=== PATIENT | male | born 1955 | race Caucasian/White ===

== ENCOUNTER 2016-03-23 00:53 | Inpatient (IN) | payer OTHER ==
[~2016-03-23] VITALS: Ht 170.2 cm; Wt 79.0 kg
[~2016-03-23 00:53] MED LIST: ALPR2TAB3 PO; ASPI81TA11 PO; ATOR40TA PO; ESCI20TA PO; LISI-360 PO; OXYC-360 PO; PLAV75TA PO; RANT150EF PO/NG; TOPR50TA PO
[2016-03-23 02:25] VITALS: BP 156/74; PULSE 109; RESP 18; TEMP 98.2; O2SAT 97
[2016-03-23] MEDS ORDERED: ALUMINUM/MAGNESIUM/SIMETH 30 ML CUP PO PRN (02:45)
[2016-03-23] MEDS ORDERED: LORazepam 2 MG/ML VIAL IM PRN (02:45)
[2016-03-23] MEDS ORDERED: MAGNESIUM HYDROXIDE SUSP 30 ML CUP PO PRN (02:45)
[2016-03-23 06:01] VITALS: BP 154/76; PULSE 85; RESP 17; TEMP 98.2; O2SAT 98
[2016-03-23 08:06] LABS: ANION GAP 9 MEQ/L (5-15); BICARBONATE 25.3 MEQ/L (21.0-32.0); BLOOD UREA NITROGEN 15 MG/DL (7-18); CHLORIDE 104 MEQ/L (98-107); GLOMERULAR FILTRATION RATE 106 ML/MIN (>89); POTASSIUM 4.2 MEQ/L (3.5-5.1); SODIUM (NA) 138 MEQ/L (136-145)
[2016-03-23 08:08] LABS: HDL CHOLESTEROL 31.2 MG/DL (40.0-60.0); LDL CHOLESTEROL 126 MG/DL (0-99)
[2016-03-23] MEDS: METOPROLOL TARTRATE 50 MG TAB PO SCH ×2 (08:42→20:30)
[2016-03-23] MEDS: ASPIRIN 81 MG CHEW TAB PO SCH (08:42)
[2016-03-23] MEDS: FENOFIBRATE 145 MG TAB PO SCH (08:42)
[2016-03-23] MEDS: PARoxetine HCL 20 MG TAB PO SCH (08:42)
[2016-03-23] MEDS: metFORMIN HCL 500 MG TAB PO SCH ×2 (08:42→21:13)
[2016-03-23] MEDS: CLOPIDOGREL 75 MG TAB PO SCH (08:42)
[2016-03-23] MEDS: ACETAMINOPHEN 325 MG TAB PO PRN (08:43)
[2016-03-23] MEDS: ENALAPRIL MALEATE 5 MG TAB PO SCH (08:57)
[2016-03-23] MEDS: GLIMEPIRIDE 2 MG TAB PO SCH ×2 (08:57→20:30)
[2016-03-23 13:43] LABS: HEMOGLOBIN A1a 0.8 %; HEMOGLOBIN A1b 1.9 %; HEMOGLOBIN Ao 83.9 %; HEMOGLOBIN LA1C 2.2 %; HEMOGLOBIN P3 3.6 %
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
[2016-03-23 19:41] VITALS: BP 146/69; PULSE 80; RESP 18; TEMP 97.6
--- NOTE | 2016-03-23 19:52 | PD.CONS ---
HPI Service [facility] Hospitalists Consult Requested By Primary Care Physician Gerardo Justice M.D. Diagnoses: History of Present Illness Pt was [place] Acted and sent to psych unit by his psychiatrist. Apparently he was having suicidal ideation. I was asked if ok to start prazosin for possible ptsd. when I evaluated the patient he was not interested in telling me why he was there.."I don't want to talk about it". Review of Systems Other reported SI Past Family Social History Past Medical History pad. right superficial fem. and ext iliac stents cad. stents lad/rca htn dm anxiety/depression. Reported Medications Lisinopril 10 mg (Lisinopril) 10 Mg Tab 1 Tab PO DAILY Escitalopram Oxalate 20 Mg Tab 20 Mg PO DAILY Plavix (Clopidogrel Bisulfate) 75 Mg Tab 75 Mg PO DAILY Atorvastatin 40 mg (Atorvastatin Calcium) 40 Mg Tab 40 Mg PO HS Aspirin EC 81 mg (Aspirin) 81 Mg Tab 81 Mg PO DAILY Alprazolam 2 Mg Tab 2 Mg PO BID Percocet (Oxycodone/Acetaminophen) 5 Mg/325 Mg Tab 1 Tab PO Q4HPRN FOR PAIN Zantac (Ranitidine HCl) 150 Mg Tab 150 Mg PO/NG BID Toprol Xl (Metoprolol Succinate) 50 Mg Tabcr 50 Mg PO BID amaryl 2mg bid metformin 1000mg bid Allergies: Coded Allergies: No Known Allergies (Verified , 02/15/08) Family History nc Social History denies etoh use to me Physical Exam Vital Signs heent neg heart reg lung cta abd s/nt ext no edema Vital Signs Date Time Temp Pulse Resp B/P Pulse Ox O2 Delivery O2 Flow Rate FiO2 03/23/16 19:41 97.6 80 18 146/69 03/23/16 06:01 98.2 85 17 154/76 98 03/23/16 02:25 98.2 109 18 156/74 97 Laboratory Laboratory Tests Test 03/23/16 06:51 Sodium Level 138 Potassium Level 4.2 Chloride Level 104 Carbon Dioxide Level 25.3 Anion Gap 9 Blood Urea Nitrogen 15 Creatinine 0.75 Estimat Glomerular Filtration 106 Rate Random Glucose 143 Hemoglobin A1c 7.3 Calcium Level 9.1 Triglycerides Level 199 Cholesterol Level 197 LDL Cholesterol 126 HDL Cholesterol 31.2 Cholesterol/HDL Ratio 6.31 Result Diagram: 03/23/16 0651 Assessment and Plan Problem List: (1) Major depressive disorder, recurrent, severe with psychotic features Status: Acute Plan: Per psychiatry It is ok to start prazosin from medical standpt if felt necessary by psychiatrist. will follow bp and adjust meds as needed. (2) HTN (hypertension) Status: Chronic Plan: cont bb and werner ok to start prazosin if psychiatry feels necessary will follow bp (3) DM type 2 (diabetes mellitus, type 2) Status: Chronic Plan: cont amaryl and metformin ssi (4) PAD (peripheral artery disease) Status: Chronic Plan: cont antiplts. (5) CAD (coronary artery disease) Status: Chronic Plan: cont bb/antiplts Ryne Grace MD Mar 23, 2016 19:52
[2016-03-23] MEDS ORDERED: DEXTROSE 50% IN WATER 50 ML VIAL(D50) IV PUSH PRN (20:00)
[2016-03-23] MEDS ORDERED: GLUCAGON 1 MG/ML VIAL OTHER PRN (20:00)
[2016-03-23] MEDS: AMITRIPTYLINE HCL 50 MG TAB PO SCH (20:30)
[2016-03-23] MEDS: hydrOXYzine HCL 50 MG TAB PO PRN (20:30)
[2016-03-23] MEDS: PRAVASTATIN SOD 80 MG TAB PO SCH (20:30)
[2016-03-23] MEDS: INSULIN ASPART SUPPLEMENTAL SCALE SQ SCH (21:00)
[2016-03-24 06:06] VITALS: BP 125/62; PULSE 82; RESP 16; TEMP 98
[2016-03-24] MEDS: INSULIN ASPART SUPPLEMENTAL SCALE SQ SCH ×4 (06:16→21:00)
[2016-03-24] MEDS: FENOFIBRATE 145 MG TAB PO SCH (08:18)
[2016-03-24] MEDS: METOPROLOL TARTRATE 50 MG TAB PO SCH ×2 (08:18→20:21)
[2016-03-24] MEDS: ENALAPRIL MALEATE 5 MG TAB PO SCH (08:18)
[2016-03-24] MEDS: CLOPIDOGREL 75 MG TAB PO SCH (08:18)
[2016-03-24] MEDS: PARoxetine HCL 20 MG TAB PO SCH (08:18)
[2016-03-24] MEDS: GLIMEPIRIDE 2 MG TAB PO SCH ×2 (08:19→21:00)
[2016-03-24] MEDS: ASPIRIN 81 MG CHEW TAB PO SCH (08:19)
[2016-03-24] MEDS: metFORMIN HCL 500 MG TAB PO SCH ×2 (08:19→20:21)
--- NOTE | 2016-03-24 13:45 | HHI.PYPN ---
Subjective Remarks Patient was seen and discussed with the housekeeping staff. Reportedly patient does get confused and misinterprets the reality. But no behavior or management problem reported. Patient claimed that he has been feeling much better with the medication. He has been sleeping better. Denied any side effects on the medication. Denied any suicidal ideation intentions or plan. Denied any active auditory or visual hallucinations. Patient is willing to sign voluntary and stay to monitor the medication and stabilize his symptoms. Continue with the same treatment Review of Systems Psychiatric: COMPLAINS OF: Confusion, Mood changes, Depression Other Review of systems same as that off 03/23/16 Objective Alert: Yes [place]: Person, Place Mood: Anxious, Depressed Affect: Restricted Memory Intact: Recent (mildly impaired) Hallucinations: Other (patient denies any active auditory or visual hallucinations) Delusions: Yes Delusion Type: Other (patient sometimes gets confused and misinterprets reality ) Suicidal: Ideation (patient denied any suicidal ideation intentions or plan) Homicidal: Ideation (denies) Insight/Judgement Limited Vitals/IOs Vital Signs Date Time Temp Pulse Resp B/P Pulse Ox O2 Delivery O2 Flow Rate FiO2 03/24/16 06:06 98.0 82 16 125/62 03/23/16 06:01 98 Assessment & Plan Problem List: (1) Major depressive disorder, recurrent, severe with psychotic features ICD Code: F33.3 (2) Chronic post-traumatic stress disorder (PTSD) ICD Code: F43.12 Assessment & Plan Estimated LOS: days Justification for Cont. Inpt. Risk of decompensation. Titrating and monitoring of the medication Request HC Surrog/Guard Advoc?: No Jonatan Yusuf MD Mar 24, 2016 13:45
[2016-03-24] MEDS: REMOVE OLD NICODERM (NICOTINE) PATCH TD SCH (16:24)
[2016-03-24] MEDS: NICOTINE 21 MG/24 HR PATCH TD SCH (16:24)
[2016-03-24 18:14] VITALS: BP 122/64; PULSE 92; RESP 18; TEMP 98.1
[2016-03-24] MEDS: AMITRIPTYLINE HCL 50 MG TAB PO SCH (20:21)
[2016-03-24] MEDS: PRAVASTATIN SOD 80 MG TAB PO SCH (20:21)
[2016-03-24 20:56] VITALS: BP 138/64; PULSE 84; RESP 18; TEMP 98.5; O2SAT 97
[2016-03-24] MEDS: QUEtiapine FUMARATE 100 MG TAB PO SCH (21:00)
[2016-03-24] MEDS: hydrOXYzine HCL 50 MG TAB PO PRN (21:24)
[2016-03-24] MEDS ORDERED: OLANZapine IM 10 MG VIAL IM ONE (23:00)
[2016-03-25] MEDS: LORazepam 1 MG TAB PO PRN ×2 (01:19→10:00)
[2016-03-25] MEDS: hydrOXYzine HCL 50 MG TAB PO PRN ×2 (03:24→21:34)
[2016-03-25 06:00] VITALS: BP 138/63; PULSE 79; RESP 18; TEMP 97.5; O2SAT 99
[2016-03-25] MEDS: INSULIN ASPART SUPPLEMENTAL SCALE SQ SCH ×4 (06:16→21:00)
[2016-03-25] MEDS: NICOTINE 21 MG/24 HR PATCH TD SCH (09:00)
[2016-03-25] MEDS: FENOFIBRATE 145 MG TAB PO SCH (09:00)
[2016-03-25] MEDS: REMOVE OLD NICODERM (NICOTINE) PATCH TD SCH (09:00)
[2016-03-25] MEDS: ASPIRIN 81 MG CHEW TAB PO SCH (09:05)
[2016-03-25] MEDS: ENALAPRIL MALEATE 5 MG TAB PO SCH (09:05)
[2016-03-25] MEDS: METOPROLOL TARTRATE 50 MG TAB PO SCH ×2 (09:05→21:00)
[2016-03-25] MEDS: metFORMIN HCL 500 MG TAB PO SCH ×2 (09:05→21:00)
[2016-03-25] MEDS: CLOPIDOGREL 75 MG TAB PO SCH (09:05)
[2016-03-25] MEDS: PARoxetine HCL 20 MG TAB PO SCH (09:05)
[2016-03-25] MEDS: GLIMEPIRIDE 2 MG TAB PO SCH ×2 (09:05→21:00)
[2016-03-25] MEDS ORDERED: diphenhydrAMINE HCL 50 MG/ML VIAL IM STA (12:01)
[2016-03-25] MEDS ORDERED: LORazepam 2 MG/ML VIAL IM STA (12:01)
[2016-03-25] MEDS ORDERED: HALOPERIDOL LACTATE 5 MG/ML AMP IM STA (12:01)
--- NOTE | 2016-03-25 14:43 | HHI.PYPN ---
Subjective Remarks Patient seen in day room with nurse Newman, also being observed by floor staff, patient sitting at table rubbing touching moving hands over the table was if reaching for something that is not there. Patient showing very poor eye contact. Patient selectively mute only making mumbling sounds not responding to any questions. This is a significant change in his mental status since yesterday when upon admission he was verbal and able to communicate history to Dr. Eden and the floor staff. Also interesting patient was on her fairly large dose of opiates and benzodiazepines prior to admission. We will offer schedule Ativan 1 mg 3 times a day. We will order a neurology consult also. And if possible get a urine toxicology also at this time we'll place the patient on a one-to-one observation level for his own safety Review of Systems Other And able to ascertain due to patient's change in mental status Objective Alert: Yes [place]: Situation (labile to ascertain due to patient's altered mental status) Mood: Agitated, Anxious, Depressed Affect: Restricted Memory Intact: Recent (mildly impaired) Hallucinations: Other (unable to ascertain due to patient's altered mental status) Delusions: Yes Delusion Type: Other (patient sometimes gets confused and misinterprets reality ) Suicidal: Ideation (difficult to ascertain due to patient's altered mental status) Homicidal: Ideation (difficult to ascertain due to patient's altered mental status) Insight/Judgement Nil Vitals/IOs Vital Signs Date Time Temp Pulse Resp B/P Pulse Ox O2 Delivery O2 Flow Rate FiO2 03/25/16 06:00 97.5 79 18 138/63 99 Assessment & Plan Problem List: (1) Major depressive disorder, recurrent, severe with psychotic features ICD Code: F33.3 (2) Chronic post-traumatic stress disorder (PTSD) ICD Code: F43.12 (3) Altered mental status, unspecified ICD Code: R41.82 Assessment & Plan Estimated LOS: days issue with significant alteration of his mental status appears to be showing a significant demented type behaviors and/or grossly psychotic. Will reinstate scheduled benzodiazepines have a neurology consult Place the patient on one-to-one Justification for Cont. Inpt. With the same patient was severely decompensated placed a lower level of care, nasal assessment for this fairly recent change in his mental status Discharge Planning To be determined Request HC Surrog/Guard Advoc?: No Chavez Ty MD Mar 25, 2016 14:43
[2016-03-25] MEDS: LORazepam 2 MG/ML VIAL IM SCH (17:25)
[2016-03-25 19:51] VITALS: BP 126/59; PULSE 81; RESP 18; TEMP 97.6; O2SAT 97
[2016-03-25] MEDS: AMITRIPTYLINE HCL 50 MG TAB PO SCH (21:00)
[2016-03-25] MEDS: QUEtiapine FUMARATE 100 MG TAB PO SCH (21:00)
[2016-03-25] MEDS: PRAVASTATIN SOD 80 MG TAB PO SCH (21:00)
[2016-03-26] MEDS: hydrOXYzine HCL 50 MG TAB PO PRN (03:45)
[2016-03-26 06:06] VITALS: BP 158/73; PULSE 83; RESP 17; TEMP 98; O2SAT 99
[2016-03-26] MEDS: INSULIN ASPART SUPPLEMENTAL SCALE SQ SCH ×4 (06:15→20:48)
[2016-03-26] MEDS: REMOVE OLD NICODERM (NICOTINE) PATCH TD SCH (09:00)
--- NOTE | 2016-03-26 09:17 | HHI.PYPN ---
Subjective Remarks Patient seen and examined with nursing staff. Please note that this document also services my second opinion for involuntary psychiatric hospitalization under the Aquino act. Chart reviewed. Case discussed with nursing staff who reports patient remains on a one-to-one due to behaviors. On my examination today, the patient tells me get me out of here." He says he came into the hospital because "I kept passing out." He denies any suicidal ideation and says that his previous reports of suicidal thoughts "were just a bunch of BS." He denies side effects from medications. No other issues noted. Review of Systems Other No physical complaints today. No reported withdrawal symptoms. Objective Alert: Yes [place]: Person, Place ([place]), Date (March 25) Mood: Calm Affect: Blunted Memory Intact: Comment (not formally assessed) Hallucinations: Other (no AVH) Delusions: Yes Delusion Type: Other (continues to believe that he has family on the other psychiatric unit) Suicidal: Ideation (no SI voiced but patient is unreliable to contract for safety) Homicidal: Ideation (no HI voiced but see above) Insight/Judgement Poor Remarks No abnormal motor movements noted. In particular no hand tremor, no tongue fasciculations, no mydriasis, no diaphoresis, no other signs of GABAergic withdrawal. Thought process somewhat disorganized. Speech a little bit rambling. Labs Labs reviewed. No new labs. Vitals/IOs Vital Signs Date Time Temp Pulse Resp B/P Pulse Ox O2 Delivery O2 Flow Rate FiO2 03/26/16 06:06 98.0 83 17 158/73 99 Intake and Output 03/25/16 03/25/16 03/26/16 08:00 16:00 00:00 Intake Total 240 ml 720 ml 720 ml Balance 240 ml 720 ml 720 ml Assessment & Plan Problem List: (1) Major depressive disorder, recurrent, severe with psychotic features ICD Code: F33.3 (2) Chronic post-traumatic stress disorder (PTSD) ICD Code: F43.12 (3) Altered mental status, unspecified ICD Code: R41.82 Assessment & Plan Given the circumstances of patient's initial presentation here in his presentation on my examination today, I concur with Dr. Ty that the patient meets criteria for involuntary psychiatric hospitalization under the Aquino act. I completed the second opinion paperwork. Continue one-to-one. Continue current psychotropics as ordered. Might consider holding anticholinergic, antihistaminergic and other deliriogenic medications if this appears to be more of a delirium picture. Awaiting neurological consultation. Continue other medications and care as ordered. Justification for Cont. Inpt. Risk for decompensation. Concern for impairments in safety. Discharge Planning Per Dr. Ty Request HC Surrog/Guard Advoc?: Yes Selvin June MD Mar 26, 2016 09:17
[2016-03-26] MEDS: METOPROLOL TARTRATE 50 MG TAB PO SCH ×2 (09:22→20:48)
[2016-03-26] MEDS: GLIMEPIRIDE 2 MG TAB PO SCH ×2 (09:22→20:47)
[2016-03-26] MEDS: ENALAPRIL MALEATE 5 MG TAB PO SCH (09:22)
[2016-03-26] MEDS: FENOFIBRATE 145 MG TAB PO SCH (09:22)
[2016-03-26] MEDS: ASPIRIN 81 MG CHEW TAB PO SCH (09:22)
[2016-03-26] MEDS: metFORMIN HCL 500 MG TAB PO SCH ×2 (09:23→20:47)
[2016-03-26] MEDS: PARoxetine HCL 20 MG TAB PO SCH (09:23)
[2016-03-26] MEDS: CLOPIDOGREL 75 MG TAB PO SCH (09:23)
[2016-03-26] MEDS: LORazepam 2 MG/ML VIAL IM SCH ×3 (09:23→17:28)
[2016-03-26] MEDS: NICOTINE 21 MG/24 HR PATCH TD SCH (09:24)
[2016-03-26 19:24] VITALS: BP 159/68; PULSE 88; RESP 18; TEMP 98.7; O2SAT 98
[2016-03-26] MEDS: PRAVASTATIN SOD 80 MG TAB PO SCH (20:48)
[2016-03-26] MEDS: QUEtiapine FUMARATE 100 MG TAB PO SCH (20:48)
[2016-03-26] MEDS: AMITRIPTYLINE HCL 50 MG TAB PO SCH (20:48)
--- NOTE | 2016-03-26 21:16 | MB ---
cc: ELIJAH WATSON MD DATE OF CONSULTATION 03/26/16 REASON FOR CONSULTATION Altered mental status and neurological assessment for behavioral psychological abnormality. HISTORY OF PRESENT ILLNESS A 61-year-old male who was Aquino Acted by his personal psychiatrist because he reported suicidal ideation. He was admitted to the psychiatry unit. The patient is being treated for depression by his private psychiatrist. Now recently he is having problems with seeing shadows and occasional confusion. The patient denies passing out, headache, blurred vision, double vision, slurred speech. He is on high doses of Percocet 5 pills over the 24 hours as he admits. He is currently on aspirin and Plavix because he has had two stents done in his lower extremities and he has history of remote stroke without residual defects. REVIEW OF SYSTEMS A 12-point review of systems is negative except what is stated in the HPI. PAST MEDICAL HISTORY 1. Stroke with residual defect and he is not certain which side of the brain it was and to what type it was 2. Bilateral stenting of the lower extremities, 3. Anxiety 4. Depression 5. Coronary artery disease 6. Thyroid disorder. FAMILY HISTORY Noncontributory ALLERGIES No known allergies. SOCIAL HISTORY Denies drugs and alcohol abuse PAST SURGICAL HISTORY Bilateral stents GENERAL EXAM: Awake, alert, not in acute distress, good historian CARDIOVASCULAR: Normal sinus rhythm, no murmur RESPIRATORY: clear to auscultation, no wheezes MUSCULOSKELETAL: no edema, no cyanosis, moves all extremities equally DIAGNOSTIC IMPRESSION 1. History of stroke 2. Recent episodes of confusion/possible TIA. PLAN 1. Neuro checks q. four hourly. 2. MRI of brain without contrast. 3. Continue aspirin 81 mg 4. Continue Plavix 75 mg 5. DVT prophylaxis. Thank you for the opportunity to participate in the care of the patient. MD DOUGLAS Kincaid/ /8:05 PM /9:08 PM MARI
[2016-03-27 05:36] VITALS: BP 156/78; PULSE 82; RESP 16; TEMP 97.6; O2SAT 93
[2016-03-27] MEDS: metFORMIN HCL 500 MG TAB PO SCH ×2 (08:53→21:00)
[2016-03-27] MEDS: ENALAPRIL MALEATE 5 MG TAB PO SCH (08:53)
[2016-03-27] MEDS: PARoxetine HCL 20 MG TAB PO SCH (08:53)
[2016-03-27] MEDS: GLIMEPIRIDE 2 MG TAB PO SCH ×2 (08:53→22:11)
[2016-03-27] MEDS: ASPIRIN 81 MG CHEW TAB PO SCH (08:53)
[2016-03-27] MEDS: FENOFIBRATE 145 MG TAB PO SCH (08:53)
[2016-03-27] MEDS: CLOPIDOGREL 75 MG TAB PO SCH (08:54)
[2016-03-27] MEDS: METOPROLOL TARTRATE 50 MG TAB PO SCH ×2 (08:54→21:00)
[2016-03-27] MEDS: LORazepam 2 MG/ML VIAL IM SCH (08:55)
[2016-03-27] MEDS: NICOTINE 21 MG/24 HR PATCH TD SCH (08:58)
[2016-03-27] MEDS: REMOVE OLD NICODERM (NICOTINE) PATCH TD SCH (08:58)
[2016-03-27] MEDS: INSULIN ASPART SUPPLEMENTAL SCALE SQ SCH ×3 (10:52→21:00)
--- NOTE | 2016-03-27 12:27 | HHI.PYPN ---
Subjective Remarks Patient seen and examined with nursing staff. Chart reviewed. Case discussed with nursing staff no behaviors to report. On my examination today, the patient believes that he came into the hospital because "I started freaking out and moving my hands." He denies any SI or HI. Denies any side effects from medications. Review of Systems Other No reported physical complaints today Objective Alert: Yes [place]: Person (O x 3) Mood: Calm Affect: Blunted Memory Intact: Comment (Not assessed) Hallucinations: Other (No AVH) Delusions: No Delusion Type: Other (no delusions today) Suicidal: Ideation (no SI voiced) Homicidal: Ideation (no HI voiced) Insight/Judgement Perhaps improving Remarks Thought process seems fairly linear today. Speech within normal limits. No abnormal motor movements noted. No signs of withdrawal noted. Labs Labs reviewed. No new labs. Vitals/IOs Vital Signs Date Time Temp Pulse Resp B/P Pulse Ox O2 Delivery O2 Flow Rate FiO2 03/27/16 05:36 97.6 82 16 156/78 93 Intake and Output 03/26/16 03/26/16 03/27/16 08:00 16:00 00:00 Intake Total 480 ml 1200 ml 720 ml Balance 480 ml 1200 ml 720 ml Assessment & Plan Problem List: (1) Major depressive disorder, recurrent, severe with psychotic features ICD Code: F33.3 (2) Chronic post-traumatic stress disorder (PTSD) ICD Code: F43.12 (3) Altered mental status, unspecified ICD Code: R41.82 Assessment & Plan Mental status seems improved today. No further episodes of behavioral disturbance. I'll continue though one-to-one for another 24 hours but could probably be discontinued tomorrow if behavior remains good. I'll go ahead and switch his IM Ativan to oral, which will have the effect of a small dose decrease. Continue other medications and care as ordered. Neurology consultation noted and appreciated. MRI of the brain has been scheduled for tomorrow. Justification for Cont. Inpt. Concerns for impairments in reality testing. Risk for decompensation. Discharge Planning Per Dr. Ty. Request HC Surrog/Guard Advoc?: Yes Selvin June MD Mar 27, 2016 12:27
[2016-03-27] MEDS: LORazepam 1 MG TAB PO SCH ×2 (12:37→17:03)
[2016-03-27 18:00] VITALS: BP 102/51; PULSE 82; RESP 16; TEMP 97.7; O2SAT 98
[2016-03-27] MEDS: ACETAMINOPHEN 325 MG TAB PO PRN (18:32)
[2016-03-27] MEDS: AMITRIPTYLINE HCL 50 MG TAB PO SCH (22:11)
[2016-03-27] MEDS: hydrOXYzine HCL 50 MG TAB PO PRN (22:11)
[2016-03-27] MEDS: QUEtiapine FUMARATE 100 MG TAB PO SCH (22:11)
[2016-03-27] MEDS: PRAVASTATIN SOD 80 MG TAB PO SCH (22:11)
[2016-03-28 06:00] VITALS: BP 118/60; PULSE 100; RESP 18; TEMP 98.3; O2SAT 97
[2016-03-28] MEDS: INSULIN ASPART SUPPLEMENTAL SCALE SQ SCH ×4 (06:37→20:10)
[2016-03-28] MEDS: REMOVE OLD NICODERM (NICOTINE) PATCH TD SCH (09:00)
[2016-03-28] MEDS: FENOFIBRATE 145 MG TAB PO SCH (09:00)
[2016-03-28] MEDS: CLOPIDOGREL 75 MG TAB PO SCH (09:09)
[2016-03-28] MEDS: PARoxetine HCL 20 MG TAB PO SCH (09:09)
[2016-03-28] MEDS: LORazepam 1 MG TAB PO SCH ×3 (09:09→17:27)
[2016-03-28] MEDS: ENALAPRIL MALEATE 5 MG TAB PO SCH (09:09)
[2016-03-28] MEDS: NICOTINE 21 MG/24 HR PATCH TD SCH (09:09)
[2016-03-28] MEDS: ASPIRIN 81 MG CHEW TAB PO SCH (09:09)
[2016-03-28] MEDS: GLIMEPIRIDE 2 MG TAB PO SCH ×2 (09:09→20:26)
[2016-03-28] MEDS: METOPROLOL TARTRATE 50 MG TAB PO SCH ×2 (09:10→20:26)
[2016-03-28] MEDS: metFORMIN HCL 500 MG TAB PO SCH ×2 (09:10→20:26)
--- NOTE | 2016-03-28 12:45 | HHI.PYPN ---
Subjective Remarks Patient seen in his room with nurse Ryan, patient calm cooperative and oriented. States he does not remember my visit with him on 03/25. At that time he is quite psychotic. However knowledge patient is calm cooperative and pleasant with me does complain of some pain. We will cancel his Tylenol and offer him Motrin 800 mg every 8 hours. He does denies suicidality homicidality voices or visions at the present time. For now continue other medication no change Review of Systems Except as stated in HPI: all other systems reviewed are Neg Objective Alert: Yes [place]: Person (O x 3) Mood: Calm Affect: Blunted Memory Intact: Comment (Not assessed) Hallucinations: Other (No AVH) Delusions: No Delusion Type: Other (no delusions today) Suicidal: Ideation (no SI voiced) Homicidal: Ideation (no HI voiced) Insight/Judgement Poor Vitals/IOs Vital Signs Date Time Temp Pulse Resp B/P Pulse Ox O2 Delivery O2 Flow Rate FiO2 03/28/16 06:00 98.3 100 18 118/60 97 Intake and Output 03/27/16 03/27/16 03/28/16 08:00 16:00 00:00 Intake Total 720 ml 960 ml 660 ml Balance 720 ml 960 ml 660 ml Assessment & Plan Problem List: (1) Major depressive disorder, recurrent, severe with psychotic features ICD Code: F33.3 (2) Chronic post-traumatic stress disorder (PTSD) ICD Code: F43.12 (3) Altered mental status, unspecified ICD Code: R41.82 Assessment & Plan Patient showing marked decrease in his psychotic symptoms, more appropriate unfocused. For now continue treatment see med changes above Justification for Cont. Inpt. At this time patient would decompensated placed in the lower level of care Discharge Planning To be determined Request HC Surrog/Guard Advoc?: Yes Chavez Ty MD Mar 28, 2016 12:45
[2016-03-28] MEDS: IBUPROFEN 800 MG TAB PO SCH ×2 (13:05→20:29)
--- NOTE | 2016-03-28 15:17 | HHI.PR ---
Subjective Remarks medical team signed off case yesterday. Reconsulted by psychiatry d/t pt c/o back pain. Pt interviewed. Per pt, he suffers from chronic neck and back pain. Pt denies any recent exacerbation. Pt denies any recent injuries. Pt denies any weakness in his arms or legs. Pt denies any loss of bowel or bladder control. Pt denies any difficulties with ambulation. Objective Vitals Vital Signs Date Time Temp Pulse Resp B/P Pulse Ox O2 Delivery O2 Flow Rate FiO2 03/28/16 06:00 98.3 100 18 118/60 97 03/27/16 19:32 18 03/27/16 18:00 97.7 82 16 102/51 98 03/27/16 03/27/16 03/28/16 15:00 23:00 07:00 Intake Total 1560 ml 660 ml Balance 1560 ml 660 ml Intake Oral 1560 ml 660 ml # Voids 1 Objective Remarks GENERAL: This is a well-nourished, well-developed patient, in no apparent distress. CARDIOVASCULAR: Regular rate and rhythm without murmurs, gallops, or rubs. RESPIRATORY: Clear to auscultation. Breath sounds equal bilaterally. No wheezes , rales, or rhonchi. GASTROINTESTINAL: Abdomen soft, non-tender, nondistended. Normal active bowel sounds MUSCULOSKELETAL: Extremities without clubbing, cyanosis, or edema. NEURO: Alert & Oriented x4 to person, place, time, situation. Moves all ext x4 A/P Problem List: (1) Low back pain at multiple sites Status: Acute Plan: - obtain L-spine x-rays - obtain Thoracic spine x-rays - agree with trial of ibuprofen - pt declines PT (2) Neck pain, chronic Status: Acute Plan: - obtain cervical spine series - agree with trial of ibuprofen - pt declines PT (3) Major depressive disorder, recurrent, severe with psychotic features Status: Acute Plan: - mgmt per Psychiatry (4) HTN (hypertension) Status: Chronic Plan: - observe - continue lopressor & vasotec (5) DM type 2 (diabetes mellitus, type 2) Status: Chronic Plan: - pt essentially normoglycemic since admission - stop routine accue checks - cont amaryl and metformin (6) PAD (peripheral artery disease) Status: Chronic Plan: - ASA, plavix (7) CAD (coronary artery disease) Status: Chronic Plan: - continue metoprolol, ASA, plavix Problem Qualifiers (1) DM type 2 (diabetes mellitus, type 2): Qualified Code: E11.8 - Type 2 diabetes mellitus with complication, without long-term current use of insulin Patric Cisse DO Mar 28, 2016 15:17
--- NOTE | 2016-03-28 18:29 | RADRPT ---
EXAM DATE/TIME: 03/28/2016 17:25 [facility] COMPARISON: No previous studies available for comparison. INDICATIONS : Encephalopathy MEDICAL HISTORY : Hypertension. SURGICAL HISTORY : Myocardial perfusion ENCOUNTER: Subsequent ACUITY: 4-6 days PAIN SCORE: 2/10 LOCATION: Bilateral cranial Patient was premedicated per protocol for underlying contrast media allergy. TECHNIQUE: Multiplanar, multisequence MRI of the brain was performed without contrast. FINDINGS: CEREBRUM: The ventricles are normal for age. No evidence of midline shift, mass lesion, hemorrhage or acute in farction. No extraaxial fluid collections are seen. The pituitary gland and suprasellar cistern are normal in configuration. 7 mm cystic space with a thin rim of gliosis seen adjacent to the left late ral ventricle. WHITE MATTER: No significant signal abnormalities are seen in the white matter. POSTERIOR FOSSA: The cerebellum and brainstem are intact. The 4th ventricle is midline. The cerebellopontine angle is unremarkable. The cerebellar tonsils are normal in position. DIFFUSION IMAGING: No focal areas of restricted diffusion are seen. No evidence of acute infarction. EXTRACRANIAL: The visualized portions of the orbits and paranasal sinuses are unremarkable. CONCLUSION: 1. No acute intracranial abnormality demonstrated. 2. 7 mm cystic space adjacent to the left lateral ventricle, appears chronic and may be a small diver ticulum. This is of doubtful acute clinical significance. Chavez Kimbrough MD on March 28, 2016 at 18:25 Board Certified Radiologist. This report was verified electronically.
[2016-03-28 19:37] VITALS: BP 102/55; PULSE 84; RESP 18; TEMP 97.7
[2016-03-28] MEDS: PRAVASTATIN SOD 80 MG TAB PO SCH (20:26)
[2016-03-28] MEDS: AMITRIPTYLINE HCL 50 MG TAB PO SCH (20:26)
[2016-03-28] MEDS: QUEtiapine FUMARATE 100 MG TAB PO SCH (20:26)
[2016-03-28] MEDS: hydrOXYzine HCL 50 MG TAB PO PRN (20:28)
[2016-03-29 05:36] VITALS: BP 156/70; PULSE 100; RESP 16; TEMP 98.3; O2SAT 98
[2016-03-29] MEDS: IBUPROFEN 800 MG TAB PO SCH ×3 (05:47→21:27)
[2016-03-29] MEDS: INSULIN ASPART SUPPLEMENTAL SCALE SQ SCH ×4 (06:08→20:25)
[2016-03-29 07:33] LABS: BASOPHIL % 0.4 % (0.0-2.0); EOSINOPHIL # 0.1 TH/MM3 (0-0.4); EOSINOPHIL % 1.3 % (0.0-4.0); HEMATOCRIT 40.6 % (39.0-51.0); HEMO FLAGS DIFF FINAL; LYMPH % 13.4 % (9.0-44.0); LYMPHOCYTE # 1.2 TH/MM3 (1.0-4.8); MEAN CELL VOLUME 90.8 FL (80.0-100.0); MEAN CORPUSCULAR HEMOGLOBIN 31.8 PG (27.0-34.0); MONO % 7.5 % (0.0-8.0); NEUT % 77.4 % (16.0-70.0); PLATELET COUNT 258 TH/MM3 (150-450); RED BLOOD COUNT 4.47 MIL/MM3 (4.50-5.90); RED CELL DISTRIBUTION WIDTH 12.4 % (11.6-17.2)
[2016-03-29 08:01] LABS: BICARBONATE 26.9 MEQ/L (21.0-32.0); MAGNESIUM 1.9 MG/DL (1.5-2.5); POTASSIUM 4.1 MEQ/L (3.5-5.1)
[2016-03-29] MEDS: REMOVE OLD NICODERM (NICOTINE) PATCH TD SCH (09:00)
[2016-03-29] MEDS: NICOTINE 21 MG/24 HR PATCH TD SCH (09:40)
[2016-03-29] MEDS: metFORMIN HCL 500 MG TAB PO SCH ×2 (09:41→20:31)
[2016-03-29] MEDS: CLOPIDOGREL 75 MG TAB PO SCH (09:42)
[2016-03-29] MEDS: PARoxetine HCL 20 MG TAB PO SCH (09:42)
[2016-03-29] MEDS: GLIMEPIRIDE 2 MG TAB PO SCH ×2 (09:42→20:32)
[2016-03-29] MEDS: ENALAPRIL MALEATE 5 MG TAB PO SCH (09:42)
[2016-03-29] MEDS: METOPROLOL TARTRATE 50 MG TAB PO SCH ×2 (09:42→20:31)
[2016-03-29] MEDS: ASPIRIN 81 MG CHEW TAB PO SCH (09:42)
[2016-03-29] MEDS: LORazepam 1 MG TAB PO SCH ×3 (09:42→17:19)
[2016-03-29] MEDS: FENOFIBRATE 145 MG TAB PO SCH (09:42)
--- NOTE | 2016-03-29 12:05 | HHI.PYPN ---
Subjective Remarks Patient seen in day room with nurse Cari, chart reviewed, patient returned from x-rays coping well. Still complains of some pain, though denies suicidality today, compliant medications Review of Systems Except as stated in HPI: all other systems reviewed are Neg Objective Alert: Yes [place]: Person (O x 3) Mood: Calm Affect: Blunted Memory Intact: Comment (Not assessed) Hallucinations: Other (No AVH) Delusions: No Delusion Type: Other (no delusions today) Suicidal: Ideation (no SI voiced) Homicidal: Ideation (no HI voiced) Insight/Judgement Poor Labs Test 03/29/16 03/29/16 06:50 06:52 Sodium Level 138 MEQ/L Potassium Level 4.1 MEQ/L Chloride Level 103 MEQ/L Carbon Dioxide Level 26.9 MEQ/L Anion Gap 8 MEQ/L Blood Urea Nitrogen 18 MG/DL Creatinine 0.74 MG/DL Estimat Glomerular Filtration 108 ML/MIN Rate Random Glucose 128 MG/DL Calcium Level 8.7 MG/DL Magnesium Level 1.9 MG/DL White Blood Count 9.0 TH/MM3 Red Blood Count 4.47 MIL/MM3 Hemoglobin 14.2 GM/DL Hematocrit 40.6 % Mean Corpuscular Volume 90.8 FL Mean Corpuscular Hemoglobin 31.8 PG Mean Corpuscular Hemoglobin 35.0 % Concent Red Cell Distribution Width 12.4 % Platelet Count 258 TH/MM3 Mean Platelet Volume 9.6 FL Neutrophils (%) (Auto) 77.4 % Lymphocytes (%) (Auto) 13.4 % Monocytes (%) (Auto) 7.5 % Eosinophils (%) (Auto) 1.3 % Basophils (%) (Auto) 0.4 % Neutrophils # (Auto) 7.0 TH/MM3 Lymphocytes # (Auto) 1.2 TH/MM3 Monocytes # (Auto) 0.7 TH/MM3 Eosinophils # (Auto) 0.1 TH/MM3 Basophils # (Auto) 0.0 TH/MM3 CBC Comment DIFF FINAL Differential Comment Vitals/IOs Vital Signs Date Time Temp Pulse Resp B/P Pulse Ox O2 Delivery O2 Flow Rate FiO2 03/29/16 05:36 98.3 100 16 156/70 98 Intake and Output 03/28/16 03/28/16 03/28/16 07:59 15:59 23:59 Intake Total 360 ml Balance 360 ml Assessment & Plan Problem List: (1) Major depressive disorder, recurrent, severe with psychotic features ICD Code: F33.3 (2) Chronic post-traumatic stress disorder (PTSD) ICD Code: F43.12 (3) Altered mental status, unspecified ICD Code: R41.82 Assessment & Plan Estimated LOS: days patient continues somewhat sad, there is some medical complaints, compliant medications. Justification for Cont. Inpt. At this and the patient will decompensate if placed in a lower level of care Discharge Planning To be determined Request HC Surrog/Guard Advoc?: Yes Chavez Ty MD Mar 29, 2016 12:05
--- NOTE | 2016-03-29 12:14 | RADRPT ---
EXAM DATE/TIME: 03/29/2016 11:32 [facility] COMPARISON: No previous studies available for comparison. INDICATIONS : Pain from fall 1 year ago. MEDICAL HISTORY : Hypertension. SURGICAL HISTORY : None. ENCOUNTER: Initial ACUITY: 1 year PAIN SCORE: 3/10 LOCATION: C-spine FINDINGS: Five view examination was performed. There is reversed lordosis on the lateral view. There is focal primary degenerative changes at C5-6 and C6-7. There is mild anterior subluxation of C4 over C5 by ap proximately 2 mm. Soft tissues are grossly intact. The bony structures are grossly intact. The odonto id process is intact. The neural foramina appear patent bilaterally.. CONCLUSION: 1. Focal primary bony degenerative changes at C5-6 and C6-7. 2. Mild anterior subluxation of C4 over C5 by 2 mm. Nasim Lakhani MD on March 29, 2016 at 12:11 Board Certified Radiologist. This report was verified electronically.
--- NOTE | 2016-03-29 12:16 | RADRPT ---
EXAM DATE/TIME: 03/29/2016 11:34 [facility] COMPARISON: No previous studies available for comparison. INDICATIONS : Pain in upper back. Patient fell 1 year ago. MEDICAL HISTORY : Hypertension. SURGICAL HISTORY : None. ENCOUNTER: Initial ACUITY: 1 year PAIN SCORE: 5/10 LOCATION: T-spine FINDINGS: There is normal alignment of the thoracic vertebral bodies. Vertebral body height is maintained. No evidence of fracture or subluxation. Pedicles are intact at all levels. The paravertebral reflecti ons are not thickened. There is mild curvature of the thoracic spine to the right. No paraspinal soft tissue swelling is seen. CONCLUSION: Mild scoliosis with curvature of the thoracic spine to the right. Otherwise, unremarkable study for p atient's age. Nasim Lakhani MD on March 29, 2016 at 12:13 Board Certified Radiologist. This report was verified electronically.
--- NOTE | 2016-03-29 12:56 | RADRPT ---
EXAM DATE/TIME: 03/29/2016 11:35 [facility] COMPARISON: No previous studies available for comparison. INDICATIONS : Lower back pain MEDICAL HISTORY : Hypertension. SURGICAL HISTORY : None. ENCOUNTER: Initial ACUITY: 1 year PAIN SCORE: 6/10 LOCATION: Lower back FINDINGS: There are five non-rib bearing vertebral bodies. The vertebral bodies are in normal alignment withou t evidence of subluxation or scoliosis. There is mild disc space narrowing at L5-S1. The posterior el ements are intact without evidence of spondylolysis. There are mild primary degenerative changes of t he lumbar spine. The pedicles are intact. Bony mineralization is normal. No fracture is identified. There are atherosclerotic changes in the aorta. CONCLUSION: 1. Mild primary bony degenerative changes of the lumbar spine with mild disc space narrowing at L5-S1 . Nasim Lakhani MD on March 29, 2016 at 12:54 Board Certified Radiologist. This report was verified electronically.
[2016-03-29 18:48] VITALS: BP 160/70; PULSE 82; RESP 18; TEMP 98.1; O2SAT 98
[2016-03-29] MEDS: PRAVASTATIN SOD 80 MG TAB PO SCH (20:31)
[2016-03-29] MEDS: AMITRIPTYLINE HCL 50 MG TAB PO SCH (20:32)
[2016-03-29] MEDS: QUEtiapine FUMARATE 100 MG TAB PO SCH (20:32)
[2016-03-30 05:22] VITALS: BP 144/65; PULSE 76; RESP 16; TEMP 98.1; O2SAT 98
[2016-03-30] MEDS: IBUPROFEN 800 MG TAB PO SCH ×3 (05:55→20:50)
[2016-03-30] MEDS: REMOVE OLD NICODERM (NICOTINE) PATCH TD SCH (09:00)
[2016-03-30] MEDS: FENOFIBRATE 145 MG TAB PO SCH (09:00)
[2016-03-30] MEDS: NICOTINE 21 MG/24 HR PATCH TD SCH (09:18)
[2016-03-30] MEDS: ASPIRIN 81 MG CHEW TAB PO SCH (09:19)
[2016-03-30] MEDS: metFORMIN HCL 500 MG TAB PO SCH ×2 (09:19→20:51)
[2016-03-30] MEDS: ENALAPRIL MALEATE 5 MG TAB PO SCH (09:20)
[2016-03-30] MEDS: LORazepam 1 MG TAB PO SCH ×3 (09:20→17:51)
[2016-03-30] MEDS: CLOPIDOGREL 75 MG TAB PO SCH (09:21)
[2016-03-30] MEDS: GLIMEPIRIDE 2 MG TAB PO SCH ×2 (09:21→20:51)
[2016-03-30] MEDS: METOPROLOL TARTRATE 50 MG TAB PO SCH ×2 (09:21→20:50)
[2016-03-30] MEDS: PARoxetine HCL 20 MG TAB PO SCH (09:21)
--- NOTE | 2016-03-30 10:09 | HHI.PYPN ---
Subjective Remarks Patient seen in the from with nurse Cari, patient calm pleasant with me now denies suicidality homicidality voices or visions he is oriented in all 4 spheres. He states his son is in his home and will be there when he is discharged. Patient compliant medications. At the present time I feel patient does have capacity to sign voluntarily for this hospitalization. Thus I'll lift the [place] act allow him to sign voluntary Review of Systems Except as stated in HPI: all other systems reviewed are Neg Objective Alert: Yes [place]: Person (O x 3) Mood: Calm Affect: Blunted Memory Intact: Comment (Not assessed) Hallucinations: Other (No AVH) Delusions: No Delusion Type: Other (no delusions today) Suicidal: Ideation (no SI voiced) Homicidal: Ideation (no HI voiced) Insight/Judgement Poor Vitals/IOs Vital Signs Date Time Temp Pulse Resp B/P Pulse Ox O2 Delivery O2 Flow Rate FiO2 03/30/16 05:22 98.1 76 16 144/65 98 Intake and Output 03/29/16 03/29/16 03/30/16 08:00 16:00 00:00 Intake Total 240 ml 1080 ml 360 ml Balance 240 ml 1080 ml 360 ml Assessment & Plan Problem List: (1) Major depressive disorder, recurrent, severe with psychotic features ICD Code: F33.3 (2) Chronic post-traumatic stress disorder (PTSD) ICD Code: F43.12 (3) Altered mental status, unspecified ICD Code: R41.82 Assessment & Plan Estimated LOS: days patient calmer more appropriate today lift [place] act allow patient to sign voluntary, continue treatment Justification for Cont. Inpt. At this time patient would deteriorate placed in a lower level of care Discharge Planning To be determined Request HC Surrog/Guard Advoc?: No (will lift [place] act today allow patient to sign voluntary) Chavez Ty MD Mar 30, 2016 10:09
[2016-03-30] MEDS: INSULIN ASPART SUPPLEMENTAL SCALE SQ SCH ×3 (11:00→20:54)
[2016-03-30 18:00] VITALS: BP 159/65; PULSE 86; RESP 17; TEMP 98.1; O2SAT 98
[2016-03-30] MEDS: AMITRIPTYLINE HCL 50 MG TAB PO SCH (20:50)
[2016-03-30] MEDS: PRAVASTATIN SOD 80 MG TAB PO SCH (20:50)
[2016-03-30] MEDS: QUEtiapine FUMARATE 100 MG TAB PO SCH (20:50)
[2016-03-30] MEDS: hydrOXYzine HCL 50 MG TAB PO PRN (20:56)
[2016-03-31] MEDS: IBUPROFEN 800 MG TAB PO SCH ×3 (06:00→20:30)
[2016-03-31 06:05] VITALS: BP 154/68; PULSE 85; RESP 16; TEMP 98
[2016-03-31] MEDS: INSULIN ASPART SUPPLEMENTAL SCALE SQ SCH ×4 (06:09→20:30)
[2016-03-31] MEDS: REMOVE OLD NICODERM (NICOTINE) PATCH TD SCH (09:00)
[2016-03-31] MEDS: ENALAPRIL MALEATE 5 MG TAB PO SCH (09:56)
[2016-03-31] MEDS: GLIMEPIRIDE 2 MG TAB PO SCH ×2 (09:56→20:30)
[2016-03-31] MEDS: METOPROLOL TARTRATE 50 MG TAB PO SCH ×2 (09:56→20:30)
[2016-03-31] MEDS: CLOPIDOGREL 75 MG TAB PO SCH (09:56)
[2016-03-31] MEDS: metFORMIN HCL 500 MG TAB PO SCH ×2 (09:56→20:30)
[2016-03-31] MEDS: FENOFIBRATE 145 MG TAB PO SCH (09:57)
[2016-03-31] MEDS: ASPIRIN 81 MG CHEW TAB PO SCH (09:57)
[2016-03-31] MEDS: PARoxetine HCL 20 MG TAB PO SCH (09:57)
[2016-03-31] MEDS: hydrOXYzine HCL 50 MG TAB PO PRN ×2 (09:57→20:29)
[2016-03-31] MEDS: LORazepam 1 MG TAB PO SCH ×3 (09:57→18:13)
[2016-03-31] MEDS: NICOTINE 21 MG/24 HR PATCH TD SCH (09:58)
--- NOTE | 2016-03-31 11:36 | HHI.PYPN ---
Subjective Remarks Patient seen in dayroom with floor staff. Patient calm cooperative and pleasant with me. I did share with him the fact that I talked with his daughter today and shared with her as I did with them the results of the x-rays MRIs of his back and had. Patient is doing quite well is planning on discharge tomorrow. He is willing to allow his daughter to keep all his weapons and willing to refrain from operating a vehicle until cleared by outpatient psychiatrist. He does blunted [facility] he could perhaps refer him to Dr. Hollis Byrd at that facility. Thus will meet with the family tomorrow morning at 9:30 with probable discharge after that Review of Systems Except as stated in HPI: all other systems reviewed are Neg Objective Alert: Yes [place]: Person (O x 3) Mood: Calm Affect: Euthymic (to slightly restricted) Memory Intact: Comment (Not assessed) Hallucinations: Other (No AVH) Delusions: No Delusion Type: Other (no delusions today) Suicidal: Ideation (no SI voiced) Homicidal: Ideation (no HI voiced) Insight/Judgement Poor to fair Vitals/IOs Vital Signs Date Time Temp Pulse Resp B/P Pulse Ox O2 Delivery O2 Flow Rate FiO2 03/31/16 06:05 98.0 85 16 154/68 03/30/16 18:00 98 Intake and Output 03/30/16 03/30/16 03/30/16 07:59 15:59 23:59 Intake Total 1200 ml 720 ml Balance 1200 ml 720 ml Assessment & Plan Problem List: (1) Major depressive disorder, recurrent, severe with psychotic features ICD Code: F33.3 (2) Chronic post-traumatic stress disorder (PTSD) ICD Code: F43.12 (3) Altered mental status, unspecified ICD Code: R41.82 Assessment & Plan Estimated LOS: days patient calm cooperative coping with issues related to discharge. We'll meet with his daughter and the patient tomorrow morning anticipation of discharge tomorrow Justification for Cont. Inpt. Meet with patient's daughter tomorrow to discuss discharge tomorrow Discharge Planning See above Request HC Surrog/Guard Advoc?: No (will lift [place] act today allow patient to sign voluntary) Chavez Ty MD Mar 31, 2016 11:36
[2016-03-31 18:42] VITALS: BP 141/70; PULSE 79; RESP 18; TEMP 98.3; O2SAT 97
[2016-03-31] MEDS: PRAVASTATIN SOD 80 MG TAB PO SCH (20:29)
[2016-03-31] MEDS: QUEtiapine FUMARATE 100 MG TAB PO SCH (20:30)
[2016-03-31] MEDS: AMITRIPTYLINE HCL 50 MG TAB PO SCH (20:30)
[2016-04-01 05:18] VITALS: BP 140/74; PULSE 80; RESP 16; TEMP 97.8; O2SAT 98
[2016-04-01] MEDS: INSULIN ASPART SUPPLEMENTAL SCALE SQ SCH ×2 (05:39→11:00)
[2016-04-01] MEDS: IBUPROFEN 800 MG TAB PO SCH (05:39)
[2016-04-01] MEDS: NICOTINE 21 MG/24 HR PATCH TD SCH (09:00)
[2016-04-01] MEDS: REMOVE OLD NICODERM (NICOTINE) PATCH TD SCH (09:00)
[2016-04-01] MEDS: metFORMIN HCL 500 MG TAB PO SCH (09:38)
[2016-04-01] MEDS: PARoxetine HCL 20 MG TAB PO SCH (09:38)
[2016-04-01] MEDS: FENOFIBRATE 145 MG TAB PO SCH (09:38)
[2016-04-01] MEDS: METOPROLOL TARTRATE 50 MG TAB PO SCH (09:38)
[2016-04-01] MEDS: CLOPIDOGREL 75 MG TAB PO SCH (09:38)
[2016-04-01] MEDS: LORazepam 1 MG TAB PO SCH (09:38)
[2016-04-01] MEDS: ASPIRIN 81 MG CHEW TAB PO SCH (09:39)
[2016-04-01] MEDS: GLIMEPIRIDE 2 MG TAB PO SCH (09:39)
[2016-04-01] MEDS: ENALAPRIL MALEATE 5 MG TAB PO SCH (09:39)
[2016-04-01] MEDS ORDERED: IBUP800T23 PO (10:37)
[2016-04-01] MEDS ORDERED: AMAR2TAB PO (10:37)
[2016-04-01] MEDS ORDERED: ENAL5TAB PO (10:37)
[2016-04-01] MEDS ORDERED: PAXI40TA PO (10:37)
[2016-04-01] MEDS ORDERED: SERO100T PO (10:37)
[2016-04-01] MEDS ORDERED: Amitriptyline PO (10:37)
[2016-04-01] MEDS ORDERED: FENO145T2 PO (10:37)
[2016-04-01] MEDS ORDERED: METF500 PO (10:37)
[2016-04-01] MEDS ORDERED: PRAV80TA PO (10:37)
[2016-04-01] MEDS ORDERED: PLAV75TA29 PO (10:37)
[2016-04-01] MEDS ORDERED: METO-309 PO (10:37)
[2016-04-01] MEDS ORDERED: Aspirin Chew PO (10:37)
[2016-04-01] MEDS ORDERED: LORA-474 PO (10:37)
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
== END 2016-04-01 12:35 | disposition home or self-care (01) | DRG 885 ==
LOC: H260 02:25 → UNDOADMIN 02:30 → H260 02:30 → H250 03-24 18:04
PROVIDERS: ADMIT Psychiatry & Neurology Psychiatry; ATTEND Psychiatry & Neurology Psychiatry
DX: F33.3 Major depressive disorder, recurrent, severe with psychotic symptoms (principal); E11.8 Type 2 diabetes mellitus with unspecified complications; F43.12 Post-traumatic stress disorder, chronic; R41.82 Altered mental status, unspecified; F41.9 Anxiety disorder, unspecified; E07.9 Disorder of thyroid, unspecified; G89.29 Other chronic pain; M54.2 Cervicalgia; M54.5 Low back pain; I10 Essential (primary) hypertension; I25.10 Atherosclerotic heart disease of native coronary artery without angina pectoris; Z95.5 Presence of coronary angioplasty implant and graft; Z79.02 Long term (current) use of antithrombotics/antiplatelets; Z79.82 Long term (current) use of aspirin; Z79.84 Long term (current) use of oral hypoglycemic drugs; I73.9 Peripheral vascular disease, unspecified; Z95.828 Presence of other vascular implants and grafts; Z86.73 Personal history of transient ischemic attack (TIA), and cerebral infarction without residual deficits
CPT/HCPCS: 70551; 72050; 72072; 72110; 80048; 80061; 82948; 83036; 83735; 85025; J1200; J1630; J1815; J2060